=== PATIENT | male | born 1940 | race Caucasian/White ===

== ENCOUNTER 2018-03-25 06:44 | Observation (INO) | payer MEDICARE, OTHER ==
[2018-03-15 15:15] VITALS: BMI 34.8
[~2018-03-25] VITALS: Ht 177.8 cm; Wt 110.0 kg
[2018-03-25] VITALS (27 sets, daily range): BP systolic 87–137; BP diastolic 44–76; PULSE 68–88; RESP 12–41; Ht 177.8 cm; Wt 110.0 kg
[~2018-03-25 06:44] MED LIST: ACETAMINOPHEN 500 MG TAB PO ONE; BACITRACIN 50000 UNITS INJ IRR ONE; CEFAZOLIN 2 GM/50 ML (PMX) 50 ML IVPB ONE; DEXAMETHASONE 4 MG/ML 1 ML INJ IV ONE; LACTATED RINGER'S 1,000 ML IV* SCH; TRANEXAMIC ACID 1,000 MG in NS 100 ML INTRA-OP X1 IVPB ONE; TRANEXAMIC ACID 1,000 MG in NS 100 ML PRE-OP X1 IVPB ONE
[2018-03-25] MEDS ORDERED: EPHEDrine SULFATE 50 MG/5 ML SYG ONE ×2 (07:00)
[2018-03-25] MEDS ORDERED: CEFAZOLIN 1 GM INJ ONE ×2 (07:00)
[2018-03-25] MEDS ORDERED: POLYMYXIN B 500000 UNIT INJ ONE (07:12)
[2018-03-25] MEDS ORDERED: GLIM1TAB2 PO (07:22)
[2018-03-25] MEDS ORDERED: BENA40TA56 PO (07:22)
[2018-03-25] MEDS ORDERED: ASPI81TA52 PO (07:23)
[2018-03-25] MEDS ORDERED: LINA5TAB PO (07:23)
[2018-03-25] MEDS ORDERED: FOLI-49 PO (07:24)
[2018-03-25] MEDS ORDERED: DUTA0.5C PO (07:24)
[2018-03-25] MEDS ORDERED: SIMV20TA PO (07:24)
[2018-03-25] MEDS ORDERED: LEVO25TA50 PO (07:25)
[2018-03-25] MEDS ORDERED: TAMS0.4C2 PO (07:25)
[2018-03-25] MEDS ORDERED: CELE100C PO (07:26)
[2018-03-25] MEDS ORDERED: GABA100C14 PO (07:26)
[2018-03-25] MEDS ORDERED: ESOM40CA PO (07:26)
[2018-03-25] MEDS ORDERED: ACETAMINOPHEN 1000MG/100ML IV 100 ML IVPB SCH (08:00)
--- NOTE | 2018-03-25 08:04 | HPN ---
Date/Time of Note Date/Time of Note DATE: 03/25/18 TIME: 08:04 Interval H&P Admission Note Pt. seen H&P reviewed: No system changes CHRISTIAN STONE Mar 25, 2018 08:04
[2018-03-25] MEDS ORDERED: FENTAnyl 50 MCG/ML VIAL ONE (08:16)
[2018-03-25] MEDS ORDERED: ROPIVACAINE 0.5 % 30 ML VIAL ONE (08:16)
[2018-03-25] MEDS ORDERED: MIDAZOLAM 1 MG/ML 2 ML INJ ONE (08:16)
[2018-03-25] MEDS ORDERED: PROPOFOL 0 ML ONE (08:16)
[2018-03-25] MEDS ORDERED: METOCLOPRAMIDE 10 MG INJ ONE (08:16)
[2018-03-25] MEDS ORDERED: morphine SULFATE/PF (10 MG/10 ML) INJ ONE (08:16)
[2018-03-25] MEDS ORDERED: ONDANSETRON 4 MG INJ ONE (08:16)
--- NOTE | 2018-03-25 08:59 | PREAC ---
Date/Time of Note Date/Time of Note DATE: 03/25/18 TIME: 08:57 Anesthesia Eval and Record Evaluation Time Pre-Procedure Interview DATE: 03/25/18 TIME: 08:57 Age 77 Sex male NPO: 8 hrs Preoperative diagnosis ight knee RA primary Planned procedure R knee replacement Past Medical History Past Medical History: Includes Cardio: HTN, Dyslipidemia Endo: Diabetes, Hypothyroid Renal: CKD GI: Obesity Surgery & Anesthesia Issues No known issue Meds Anticoagulation: No Beta Deejay within 24 hr: No Reason Beta Deejay not given: Pt. not on B-Deejay Reported Medications Gabapentin* (Gabapentin*) 100 Mg Capsule, 100 MG PO TID, #90 CAP 03/25/18 Celecoxib* (Celebrex*) 100 Mg Capsule, 100 MG PO BID, CAP 03/25/18 Esomeprazole Mag Trihydrate (Nexium) 40 Mg Capsule.dr, 40 MG PO DAILY, #30 CAP 03/25/18 Levothyroxine Sodium* (Levoxyl*) 25 Mcg Tablet, 25 MCG PO MONWEDFRI, #30 TAB 03/25/18 Tamsulosin Hcl* (Tamsulosin Hcl*) 0.4 Mg Cap.er.24h, 0.4 MG PO HS, CAP 03/25/18 Simvastatin* (Zocor*) 20 Mg Tablet, 20 MG PO QHS, #30 TAB 03/25/18 Dutasteride* (Avodart*) 0.5 Mg Capsule, 0.5 MG PO DAILY, CAP 03/25/18 Folic Acid* (Folic Acid*) 1 Mg Tablet, 1 MG PO DAILY, TAB 03/25/18 Aspirin (Low Dose Aspirin) 81 Mg Tablet.dr, 81 MG PO DAILY, #30 TAB 03/25/18 Linagliptin (TRADJENTA) 5 Mg Tablet, 5 MG PO DAILY, TAB 03/25/18 Glimepiride* (Glimepiride*) 1 Mg Tablet, 1 MG PO WITH BREAKFAST, TAB 03/25/18 Benazepril Hcl* (Benazepril Hcl*) 40 Mg Tablet, 40 MG PO DAILY, #30 TAB 03/25/18 Current Medications Lactated Ringer's 1,000 ml @ 125 mls/hr Q8H IV* Last administered on 03/25/18at 07:57; Admin Dose 125 MLS/HR; Start 03/25/18 at 06:00; Stop 03/25/18 at 13:59 Meds reviewed: Yes Allergies Coded Allergies: No Known Allergy (Unverified , 03/25/18) Allergies Reviewed: Yes Labs/Studies Labs Reviewed: Reviewed by anesthesiologist Blood Bank Test 03/25/18 07:50 Antibody Screen NEGATIVE Blood Type B POSITIVE test: N/A Studies: ECG (sr), CXR (patch. cleared by PC) Pre-procedure Exam Last vitals Vital Signs Date Temp Pulse Resp B/P (MAP) Pulse Ox O2 O2 Flow FiO2 Time Delivery Rate 03/25/18 98.5 80 18 137/69 97 Room Air 08:11 (91) Airway: Adequate mouth opening Mallampati: Mallampati II Teeth: Normal Lung: Normal Heart: Normal ASA Physical Status ASA physical status: 2 Emergency: None Planned Anesthetic General/MAC: ETT, LMA Neuraxial: Spinal Nerve block: Femoral (right) Pre-operative Attestations Prior to commencing anesthesia and surgery, the patient was re-evaluated, there was verification of: *The patient's identity *The results of appropriate recent lab work and preoperative vital signs *The above evaluation not changing prior to induction *Anesthetic plan, risk benefits, alternative and complications discussed with patient/family; questions answered; patient/family understands, accepts and wishes to proceed. FRANCHESCA BARBER MD Mar 25, 2018 08:59
[2018-03-25] MEDS ORDERED: ONDANSETRON 4 MG INJ IV PRN ×2 (09:00→22:00)
[2018-03-25] MEDS ORDERED: HYDROmorphONE 1 MG/5 ML IV SYRINGE IV PRN ×3 (09:00)
[2018-03-25] MEDS ORDERED: DIPHENHYDRAMINE 50 MG INJ IV PRN (09:00)
[2018-03-25] MEDS ORDERED: LABETALOL HCL 20MG INJ IV PRN (09:00)
[2018-03-25] MEDS ORDERED: hydrALAzine 20 MG INJ IV PRN (09:00)
[2018-03-25] MEDS ORDERED: MEPERIDINE 25 MG INJ IV PRN (09:00)
[2018-03-25] MEDS ORDERED: BACITRACIN 50000 UNITS INJ IRR ONE (10:02)
--- NOTE | 2018-03-25 11:01 | SIPON ---
Date/Time of Note Date/Time of Note DATE: 03/25/18 TIME: 10:59 Operative Report Preoperative Diagnosis Right knee osteoarthritis Postoperative Diagnosis Same Operation/Procedure Performed Right total knee replacement Surgeon see signature line executive sales assistant WILLIAM Ott Anesthesia: spinal Estimated blood loss: 250 - 300 ml's Transfusion Required none Specimen Bone Grafts/Implants Burgin knee, size 7 femur, size 7 tibia, 7 mm polyethylene and 41 patella Complications none CHRISTIAN STONE Mar 25, 2018 11:00
--- NOTE | 2018-03-25 11:03 | OPR ---
Date/Time of Note Date/Time of Note DATE: 03/25/18 TIME: 11:01 Operative Report Procedure Date: Mar 25, 2018 Preoperative Diagnosis Right knee osteoarthritis Postoperative Diagnosis Same Operation/Procedure Performed Right total knee replacement Surgeon see signature line Correctional Officer WILLIAM Ott Anesthesia Type: spinal Estimated Blood Loss: 250 - 300 ml's Transfusion none Specimen Bone Grafts/Implants Attune knee, size 7 femur, size 7 tibia, size 7 polyethylene, 41 patella Tubes/Drains None Complications none Pt Condition Post Procedure: stable Disposition: PACU Indications Patient is a 77-year-old male with advanced arthritis of his right knee Procedure Description The patient was placed supine on the operating room table. Right knee was prepped and draped in usual manner. An anterior incision was made. A mid vastus approach was made in the patella displaced laterally without everting it. Using intramedullary alignment, the distal femoral cut was made in 5 degrees of valgus. The femur was measured to be a size 7. The 7 cutting block was placed in slight external rotation. Anterior posterior and chamfer cuts were made. A notch was cut in the distal femur to accommodate the posterior stabilized femoral component. The PCL was sacrificed, remnants of the menisci were removed. The tibia was cut using external alignment and the patella cut using a freehand technique. Trials were inserted including a 7 femur, 7 tibia, 7 mm of polyethylene and 41 patella. This resulted in a stable knee from 0-120 degrees with good balance and tracking. The trials were then removed. The knee was in jected with pain cocktail. Hemostasis was confirmed with aqua mantis. Final components were cemented in place including a 7 femur, 7 tibia, 41 patella. 7 mm of polyethylene were placed. The knee was stable throughout its range of motion. Patellar tracking was satisfactory. The knee was closed in layers using #1 strata fix for deep fascia, 2-0 Vicryl for subcutaneous tissue and 3-0 Monocryl for the skin. Patient was transferred to the recovery room in stable condition CHRISTIAN STONE Mar 25, 2018 11:03
[2018-03-25] MEDS ORDERED: ETOMIDATE 20 MG INJ ONE (11:06)
[2018-03-25] MEDS ORDERED: NACL 0.9% 3 ML SYG IV SCH (11:30)
[2018-03-25] MEDS ORDERED: KETOROLAC 15 MG INJ IV PRN (11:30)
[2018-03-25] MEDS ORDERED: NALOXONE (0.4 MG/ML) INJ IV PRN (11:30)
[2018-03-25] MEDS ORDERED: oxyCODONE 5 MG TAB PO PRN ×2 (11:30)
[2018-03-25] MEDS ORDERED: MAGNESIUM HYDROXIDE 30ML CUP PO PRN (11:30)
[2018-03-25] MEDS: CEFAZOLIN 2 GM/50 ML (PMX) 50 ML IVPB SCH ×2 (11:48→20:13)
[2018-03-25] MEDS: LACTATED RINGER'S 1,000 ML IV SCH ×2 (13:32→23:33)
--- NOTE | 2018-03-25 13:33 | PAC ---
Date/Time of Note Date/Time of Note DATE: 03/25/18 TIME: 13:33 Post-Anesthesia Notes Post-Anesthesia Note Last documented vital signs Vital Signs Date Temp Pulse Resp B/P (MAP) Pulse Ox O2 O2 Flow FiO2 Time Delivery Rate 03/25/18 Nasal 2.0 12:40 Cannula 03/25/18 98.3 78 16 110/61 99 12:39 (77) Activity: WNL Respiratory function: WNL Cardiovascular function: WNL Mental status: Baseline Pain reasonably controlled: Yes Hydration appropriate: Yes Nausea/Vomiting absent: No FRANCHESCA BARBER MD Mar 25, 2018 13:33
--- NOTE | 2018-03-25 16:26 | PAC ---
Date/Time of Note Date/Time of Note DATE: 03/25/18 TIME: 16:26 Post-Anesthesia Notes Post-Anesthesia Note Last documented vital signs Vital Signs Date Temp Pulse Resp B/P (MAP) Pulse Ox O2 O2 Flow FiO2 Time Delivery Rate 03/25/18 97.8 79 17 131/62 97 Nasal 14:18 (85) Cannula 03/25/18 2.0 12:40 03/25/18 16 12:39 Activity: WNL Respiratory function: WNL Cardiovascular function: WNL Mental status: Baseline Pain reasonably controlled: Yes Hydration appropriate: Yes Nausea/Vomiting absent: No FRANCHESCA BARBER MD Mar 25, 2018 16:26
[2018-03-25] MEDS ORDERED: GLUCOSE GEL 15 GRAM TUBE PO PRN ×2 (16:30)
[2018-03-25] MEDS ORDERED: DEXTROSE 50% 50 ML SYRINGE IV PRN ×2 (16:30)
[2018-03-25] MEDS ORDERED: GLUCOSE GEL 15 GRAM TUBE BUCCAL PRN (16:30)
[2018-03-25] MEDS ORDERED: GLUCAGON 1 MG INJ IM PRN (16:30)
--- NOTE | 2018-03-25 17:04 | CONS ---
DATE OF ADMISSION: 03/25/2018 DATE OF CONSULTATION: 03/25/2018 INDICATION FOR CONSULTATION: Medical management. HISTORY OF PRESENTING COMPLAINT: A 77-year-old pleasant male with a past medical history of diabetes , high blood pressure, hypothyroidism and dyslipidemia who was brought in for right total knee replac ement due to chronic severe right knee osteoarthritis. The patient underwent the procedure earlier t katelyn and we are being consulted for postoperative medical management of his comorbidities. At this t sakshi, the patient was seen in the medical surgical floor, he was in no distress. He was comfortable. He denied pain at the surgical site. He states that he was in his normal health prior to surgery. At this time, denies chest pain, denies shortness of breath. Denies abdominal pain. He has not rega ined full sensation in his lower extremities from the anesthesia, but otherwise is fairly comfortable . PAST MEDICAL HISTORY: 1. Diabetes. 2. High blood pressure. 3. Dyslipidemia. 4. BPH. 5. Chronic osteoarthritis. 6. Hypothyroidism. 7. Occasional GERD. PAST SURGICAL HISTORY: 1. Right shoulder arthroscopy. 2. Hernia repair with mesh. ALLERGIES: HE HAS NO KNOWN DRUG ALLERGIES. SOCIAL HISTORY: He is a remote smoker for more than 24 years ago. Denies alcohol or illicit drug us e. FAMILY HISTORY: Noncontributory. REVIEW OF SYSTEMS: A 12-point review of system was done. Pertinent findings as in HPI. PHYSICAL EXAMINATION VITAL SIGNS: Temperature 97.8, pulse 79, respirations 16, blood pressure 131/60, saturations 97% on room air. GENERAL: Obese male, alert and oriented, in no distress. HEENT: Head is normocephalic. Pupils equal and reactive. Mucous membranes are moist. Posterior ph arynx clear of erythema and exudate. NECK: Supple with adenopathy. CHEST: Clear to auscultation. CARDIOVASCULAR: S1, S2, no added sounds or murmurs. ABDOMEN: Obese, soft, nontender, nondistended. Normoactive bowel sounds. EXTREMITIES: Negative for edema in both lower extremities. Right lower extremity is encased in a ba ndage from just above the ankle to the mid thigh. The patient is able to wiggle his toes and able to move his legs, but as mentioned earlier, still has not regained full sensation. SKIN: Otherwise, without of rash or jaundice. LABORATORY VALUES: There are no new lab findings to report. A fingerstick blood sugar was 176. ASSESSMENT: This 77-year-old male brought in for an elective right total knee arthroplasty due to ch ronic osteoarthritis who following we are consulted for management of medical problems: 1. High blood pressure, patient is currently exhibiting good control. Resume home medications and n o change is necessary. 2. Diabetes mellitus type 2. At home, the patient is taking Tradjenta and glimepiride, which we put on hold, in the hospital. We will maintain him with a weight-based Lantus and premeal NovoLog and c heck a hemoglobin A1c. If his hemoglobin A1c reflects good home control. We will resume him back on his home regimen at discharge. If not, we will have to modify his regimen to optimize him. 3. Chronic hypothyroidism. Continue home Synthroid. Check a TSH tomorrow again to assess and determine discharge . 4. History of dyslipidemia. Continue home simvastatin. 5. History of gastroesophageal reflux disease. Continue home Nexium. 6. History of benign prostatic hypertrophy. Continue home Tamsulosin and Avodart. 7. Chronic osteoarthritis and neuropathy pain management and comfort medicines per orthopedic. Plan of care has been discussed with patient in detail. Questions have been answered. Thank you so much for the consult. We will follow the patient with you. DVT prophylaxis will be per orthopedic team. Dictated By: DUSTY ROSALES MD BA/NTS Conf#: [id number] DID#: [id number] CC: CHRISTIAN STONE MD;*End*
[2018-03-25] MEDS: INSULIN ASPART [NOVOLOG] 3 ML PEN SC SCH ×2 (17:41→21:36)
[2018-03-25] MEDS: ACCU-CHEK XX SCH ×2 (17:42→21:00)
[2018-03-25] MEDS ORDERED: INSULIN GLARGINE [LANTus] (100 UNITS/ML) SYG SC SCH (20:00)
[2018-03-25] MEDS ORDERED: ATORVASTATIN 10 MG TAB PO SCH (21:00)
[2018-03-25] MEDS ORDERED: TAMSULOSIN (SR) 0.4 MG CAP PO SCH (21:00)
[2018-03-26] VITALS: BP 133/80; PULSE 80; RESP 18
[2018-03-26] MEDS ORDERED: ACCU-CHEK XX SCH (02:00)
[2018-03-26] MEDS: LACTATED RINGER'S 1,000 ML IV SCH (02:08)
[2018-03-26] MEDS: CEFAZOLIN 2 GM/50 ML (PMX) 50 ML IVPB SCH (03:50)
[2018-03-26 05:30] VITALS: BP 116/62; PULSE 76; RESP 18
[2018-03-26] MEDS: ACCU-CHEK XX SCH ×2 (07:20→12:24)
[2018-03-26 07:41] VITALS: BP 112/56; PULSE 76; RESP 18
[2018-03-26] MEDS: INSULIN ASPART [NOVOLOG] 3 ML PEN SC SCH ×2 (07:50→12:40)
--- NOTE | 2018-03-26 08:30 | PN ---
Date/Time of Note Date/Time of Note DATE: 03/26/18 TIME: 08:24 Assessment/Plan Lines/Catheters IV Catheter Type (from Nrs): Peripheral IV Assessment/Plan Assessment/Plan Patient is doing well after right knee replacement. He will do physical therapy this morning and will be discharged home. He will follow-up in 2 weeks Subjective 24 Hr Interval Summary Postop day 1 after right knee replacement. Patient is doing well. Pain is controlled. The patient has not walked with physical therapy yet due to femoral nerve block that was done yesterday. He will walk this morning Exam/Review of Systems Vital Signs Vitals Vital Signs Date Temp Pulse Resp B/P (MAP) Pulse Ox O2 O2 Flow FiO2 Time Delivery Rate 03/26/18 98.5 76 18 112/56 99 Room Air 07:41 (74) 03/25/18 2.0 19:40 Intake and Output 03/25/18 03/25/18 03/26/18 1515:00 23:00 07:00 IntakeIntake Total 2320 ml 450 ml 890 ml OutputOutput Total 100 ml 700 ml 250 ml BalanceBalance 2220 ml -250 ml 640 ml Exam Free Text/Dictation Right knee dressing is clean. Mild swelling is noted. Range of motion is 10-70 degrees. No neurovascular deficit Results Result Diagram: 03/26/18 0437 03/26/18 0437 CHRISTIAN STONE Mar 26, 2018 08:30
--- NOTE | 2018-03-26 08:36 | DS ---
Date/Time of Note Date/Time of Note DATE: 03/26/18 TIME: 08:34 Discharge Summary Admission/Discharge Info Admit Date/Time Mar 25, 2018 at 11:07 Discharge Date/Time March 26, 2018 Discharge Diagnosis Right total knee replacement Patient Condition: Good Hospital Course Patient was admitted for right knee replacement. The patient did well p ostoperatively with pain control and ambulation. There is no evidence of infection or DVT. The patient is being discharged home with home health care and instructions to continue knee exercises as instructed. He will use a walker for support. He will follow-up in 2 weeks as per his appointment. Pain medications have been prescribed Home Meds Reported Medications Gabapentin* (Gabapentin*) 100 Mg Capsule, 100 MG PO TID, #90 CAP 03/25/18 Celecoxib* (Celebrex*) 100 Mg Capsule, 100 MG PO BID, CAP 03/25/18 Esomeprazole Mag Trihydrate (Nexium) 40 Mg Capsule.dr, 40 MG PO DAILY, #30 CAP 03/25/18 Levothyroxine Sodium* (Levoxyl*) 25 Mcg Tablet, 25 MCG PO MONWEDFRI, #30 TAB 03/25/18 Tamsulosin Hcl* (Tamsulosin Hcl*) 0.4 Mg Cap.er.24h, 0.4 MG PO HS, CAP 03/25/18 Simvastatin* (Zocor*) 20 Mg Tablet, 20 MG PO QHS, #30 TAB 03/25/18 Dutasteride* (Avodart*) 0.5 Mg Capsule, 0.5 MG PO DAILY, CAP 03/25/18 Folic Acid* (Folic Acid*) 1 Mg Tablet, 1 MG PO DAILY, TAB 03/25/18 Aspirin (Low Dose Aspirin) 81 Mg Tablet.dr, 81 MG PO DAILY, #30 TAB 03/25/18 Linagliptin (TRADJENTA) 5 Mg Tablet, 5 MG PO DAILY, TAB 03/25/18 Glimepiride* (Glimepiride*) 1 Mg Tablet, 1 MG PO WITH BREAKFAST, TAB 03/25/18 Benazepril Hcl* (Benazepril Hcl*) 40 Mg Tablet, 40 MG PO DAILY, #30 TAB 03/25/18 Follow-up Plan 2 weeks Primary Care Provider Not On Staff Doctor Time spent on discharge: < 30 minutes Pending Labs Laboratory Tests Test 03/25/18 11:36 2/14/19 17:36 03/25/18 21:30 03/26/18 02:04 Bedside 176 230 182 116 Glucose mg/dL (70-220) mg/dL (70-220) mg/dL (70-220) mg/dL (70-220) Test 03/26/18 04:37 03/26/18 07:40 White Blood 6.1 Count 10^3/ul (4.8-10 .8) Red Blood 3.42 Count 10^6/ul (4.70-6 .10) Hemoglobin 9.5 g/dl (14.0-18.0 ) Hematocrit 30.8 % (42.0-52.0) Mean 90.1 Corpuscular fl (82.0-101.0) Volume Mean 27.8 Corpuscular pg (29.0-33.0) Hemoglobin Mean 30.8 Corpuscular g/dl (32.0-37.0 Hemoglobin Conc ) ent Red Cell 14.3 Distribution % (11.5-14.5) Width Platelet Count 177 10^3/UL (140-41 5) Mean Platelet 9.9 Volume fl (7.4-10.4) Immature 0.700 Granulocytes % % (0.001-0.429) Neutrophils % 80.5 % (39.0-77.0) Lymphocytes % 11.2 % (15.0-51.0) Monocytes % 7.6 % (0.0-11.0) Eosinophils % 0.0 % (0.0-7.0) Basophils % 0.0 % (0.0-2.0) Nucleated Red 0.0 Blood Cells % /100WBC (0.0-0. 0) Immature 0.040 Granulocytes # 10^3/ul (0.0-0. 031) Neutrophils # 4.9 10^3/ul (1.6-7. 5) Lymphocytes # 0.7 10^3/ul (0.8-2. 9) Monocytes # 0.5 10^3/ul (0.3-0. 9) Eosinophils # 0.0 10^3/ul (0.0-0. 5) Basophils # 0.0 10^3/ul (0.0-0. 1) Nucleated Red 0.0 Blood Cells # 10^3/ul (0.0-0. 0) Sodium Level 138 mmol/L (135-144 ) Potassium 4.4 Level mmol/L (3.5-5.1 ) Chloride Level 107 mmol/L (97-110) Carbon Dioxide 24 Level mmol/L (21-31) Anion Gap 7 (5-13) Blood Urea 23 mg/dl (7-20) Nitrogen Creatinine 1.02 mg/dl (0.61-1.2 4) Est Glomerular mL/min (>60) Filtrat Rate mL/min Glucose Level 93 mg/dl (70-220) Hemoglobin A1c 6.0 % (0-5.9) Calcium Level 8.9 mg/dl (8.4-10.2 ) Magnesium 1.7 Level mg/dl (1.7-2.5) Triglycerides 66 Level mg/dl (0-149) Cholesterol 115 Level mg/dl (100-200) LDL 60 mg/dl Cholesterol, Calculated HDL 42 Cholesterol mg/dl (31-75) Cholesterol/HDL 2.7 RATIO Ratio Thyroid 0.966 Stimulating MIU/L (0.465-4. Hormone (TSH) 680) Lab Scanned REFERENCE Report LAB [id number] CHRISTIAN ESPITIA Mar 26, 2018 08:36
[2018-03-26] MEDS ORDERED: DOCUSATE SODIUM 100 MG CAP PO SCH (09:00)
[2018-03-26] MEDS ORDERED: ASPIRIN (EC) 81 MG TAB PO SCH ×2 (09:00)
[2018-03-26] MEDS ORDERED: LINAGLIPTIN 5 MG TABLET PO SCH (09:00)
[2018-03-26] MEDS ORDERED: LEVOTHYROXINE 25 MCG TAB PO SCH (09:00)
[2018-03-26] MEDS ORDERED: BENAZEPRIL 40 MG TAB PO SCH (09:00)
[2018-03-26] MEDS ORDERED: NON-FORMULARY/PATIENT OWN MED (Esomeprazole Mag Trihydrate (Nexium) 40 MG) PO SCH (09:00)
[2018-03-26] MEDS ORDERED: DUTASTERIDE 0.5 MG CAP PO SCH (09:00)
[2018-03-26] MEDS ORDERED: FOLIC ACID 1 MG TAB PO SCH (09:00)
[2018-03-26] MEDS ORDERED: ONDANSETRON 4 MG INJ IV PRN (11:30)
--- NOTE | 2018-03-26 12:48 | CONS ---
Assessment/Plan Assessment/Plan Hospital Course (Demo Recall) SUBJECTIVE: Right knee pain well controlled. OBJECTIVE: Physical Exam General: Obese, 77 year-old male lying in bed in no apparent distress. HEENT: Normocephalic, atraumatic. Eyes: Anicteric sclerae, conjunctivae clear. ENT: Nasal septum midline, oral mucosa moist. Patient Genitourinary: Deferred. Extremities: No cyanosis, no clubbing, no edema. Right knee surgical dressing. Neurologic: Cranial nerves II through XII grossly intact. The patient is awake, alert, and oriented. Skin: Normal skin turgor. No skin rashes. Labs & Vitals per chart ASSESSMENT & PLAN 77-year-old male with comorbidities including diabetes mellitus, hypertension, hypothyroidism, prostatic hypertrophy, GERD, and obesity who was brought in for a right total knee replacement for right knee osteoarthritis. The patient underwent the surgery and the patient was admitted to inpatient setting for further monitoring. Hospitalist consult was obtained for medical management. 1. Right knee osteoarthritis. -Status post right total knee replacement on 03/25/2018. -Continue pain control. -Physical therapy as per orthopedic surgery. -Weightbearing as per orthopedic surgery. -Anticoagulation as per orthopedic surgery 2. Diabetes mellitus type 2. Hemoglobin A1c 6.0. -Continue Tradjenta and sliding scale insulin along with basal insulin. 3. Dyslipidemia. -Continue statins. -Fasting lipid panel satisfactory. 4. Hypothyroidism -Continue Synthroid. 5. BPH -Continue tamsulosin and Avodart. 6. Hypertension. -Continue antihypertensives. 7. Fluids, electrolytes, and nutrition. -Carbohydrate controlled diet. 8. DVT prophylaxis -As per orthopedic surgery. Recommendations. The patient is medically optimized. The patient is medically stable for discharge once cleared by orthopedic surgery. The patient was seen in collaboration with Dr. Levy. Consultation Date/Type/Reason Admit Date/Time Mar 25, 2018 at 11:07 Initial Consult Date 03/25/2018 Type of Consult Medical Reason for Consultation Medical management Requesting Provider: CHRISTIAN STONE Date/Time of Note DATE: 03/26/18 TIME: 12:47 Exam/Review of Systems Exam Vitals Vital Signs Date Temp Pulse Resp B/P (MAP) Pulse Ox O2 O2 Flow FiO2 Time Delivery Rate 03/26/18 98.5 76 18 112/56 99 Room Air 07:41 (74) 03/25/18 2.0 19:40 Intake and Output 03/25/18 03/25/18 03/26/18 1515:00 23:00 07:00 IntakeIntake Total 2320 ml 450 ml 890 ml OutputOutput Total 100 ml 700 ml 250 ml BalanceBalance 2220 ml -250 ml 640 ml Results Result Diagram: 03/26/18 0437 03/26/18 0437 Results 24hrs Laboratory Tests Test 03/25/18 17:36 03/25/18 21:30 03/26/18 02:04 03/26/18 04:37 Bedside Glucose 230 H 182 116 White Blood Count 6.1 Red Blood Count 3.42 L Hemoglobin 9.5 L Hematocrit 30.8 L Mean Corpuscular 90.1 Volume Mean Corpuscular 27.8 L Hemoglobin Mean Corpuscular 30.8 L Hemoglobin Concent Red Cell 14.3 Distribution Width Platelet Count 177 Mean Platelet 9.9 Volume Immature 0.700 H Granulocytes % Neutrophils % 80.5 H Lymphocytes % 11.2 L Monocytes % 7.6 Eosinophils % 0.0 Basophils % 0.0 Nucleated Red 0.0 Blood Cells % Immature 0.040 H Granulocytes # Neutrophils # 4.9 Lymphocytes # 0.7 L Monocytes # 0.5 Eosinophils # 0.0 Basophils # 0.0 Nucleated Red 0.0 Blood Cells # Sodium Level 138 Potassium Level 4.4 Chloride Level 107 Carbon Dioxide 24 Level Anion Gap 7 Blood Urea 23 H Nitrogen Creatinine 1.02 Est Glomerular Filtrat Rate mL/min Glucose Level 93 Hemoglobin A1c 6.0 H Calcium Level 8.9 Magnesium Level 1.7 Triglycerides 66 Level Cholesterol Level 115 LDL Cholesterol, 60 Calculated HDL Cholesterol 42 Cholesterol/HDL 2.7 Ratio Thyroid 0.966 Stimulating Hormone (TSH) Test 03/26/18 07:40 03/26/18 08:35 03/26/18 12:40 Lab Scanned Report REFERENCE LAB Bedside Glucose 100 90 Medications Medication Current Medications Lactated Ringer's 1,000 ml @ 80 mls/hr [id number] IV Last administered on 03/26/18at 02:08; Admin Dose 80 MLS/HR; Start 03/25/18 at 11:03 IV Flush (NS 3 ml) 3 ml PER PROTOCOL IV ; Start 03/25/18 at 11:30 Oxycodone HCl (Roxicodone) 10 mg Q4H PRN PO .PAIN; Start 03/25/18 at 11:30 Oxycodone HCl (Roxicodone) 5 mg Q4H PRN PO .PAIN; Start 03/25/18 at 11:30 Ketorolac Tromethamine (Toradol) 15 mg Q6H PRN IV .PAIN; Start 03/25/18 at 11:30 Pantoprazole (Protonix Tab) 40 mg DAILY@06 PO ; Start 03/27/18 at 06:00 Docusate Sodium (Colace) 200 mg BID PO Last administered on 03/26/18at 08:38; Admin Dose 200 MG; Start 03/26/18 at 09:00; Stop 03/29/18 at 08:59 Magnesium Hydroxide (Milk Of Mag) 30 ml HS PRN PO .CONSTIPATION; Start 03/25/18 at 11:30 Naloxone HCl (Narcan) 0.2 mg Q2M PRN IV .RESP RATE; Start 03/25/18 at 11:30 Aspirin (Halfprin) 81 mg BID PO Last administered on 03/26/18at 08:38; Admin Dose 81 MG; Start 03/26/18 at 09:00 Diagnostic Test (Pha) (Accu-Chek) 1 ea 02 XX ; Start 03/26/18 at 02:00 Insulin Aspart (Novolog Insulin Pen) NOVOLOG *MILD* ALGORITHM WITH MEALS BEDTIME SC Last administered on 03/25/18at 21:36; Admin Dose 1 UNIT; Start 03/25/18 at 17:55 Miscellaneous Information 1 ea NOTE XX ; Start 03/25/18 at 16:30 Glucose (Glutose) 15 gm Q15M PRN PO DECREASED GLUCOSE; Start 03/25/18 at 16:30 Glucose (Glutose) 22.5 gm Q15M PRN PO DECREASED GLUCOSE; Start 03/25/18 at 16:30 Dextrose (D50w Syringe) 25 ml Q15M PRN IV DECREASED GLUCOSE; Start 03/25/18 at 16:30 Dextrose (D50w Syringe) 50 ml Q15M PRN IV DECREASED GLUCOSE; Start 03/25/18 at 16:30 Glucagon (Glucagen) 1 mg Q15M PRN IM DECREASED GLUCOSE; Start 03/25/18 at 16:30 Glucose (Glutose) 15 gm Q15M PRN BUCCAL DECREASED GLUCOSE; Start 03/25/18 at 16:30 Benazepril HCl (Lotensin) 40 mg DAILY PO Last administered on 03/26/18 08:38; Admin Dose 40 MG; Start 03/26/18 at 09:00 Dutasteride (Avodart) 0.5 mg DAILY PO Last administered on 03/26/18 08:39; Admin Dose 0.5 MG; Start 03/26/18 at 09:00 Folic Acid (Folic Acid) 1 mg DAILY PO Last administered on 03/26/18 08:38; Admin Dose 1 MG; Start 03/26/18 at 09:00 Levothyroxine Sodium (Synthroid) 25 mcg MONWEDFRI PO Last administered on 03/26/18 08:38; Admin Dose 25 MCG; Start 03/26/18 at 09:00 Linagliptin (Tradjenta) 5 mg DAILY PO Last administered on 03/26/18 08:38; Admin Dose 5 MG; Start 03/26/18 at 09:00 Tamsulosin HCl (Flomax) 0.4 mg HS PO Last administered on 03/25/18 21:31; Admin Dose 0.4 MG; Start 03/25/18 at 21:00 Atorvastatin Calcium (Lipitor) 10 mg QHS PO Last administered on 03/25/18 21:38; Admin Dose 10 MG; Start 03/25/18 at 21:00 Diagnostic Test (Pha) (Accu-Chek) 1 ea AC MEALS AND BEDTIME XX Last administered on 03/25/18 17:42; Admin Dose 1 EA; Start 03/25/18 at 17:25 Insulin Glargine (Lantus) 17 units DAILY@2000 SC Last administered on 03/25/18 21:36; Admin Dose 17 UNITS; Start 03/25/18 at 20:00 Ondansetron HCl (Zofran Inj) 4 mg Q4H PRN IV NAUSEA/VOMITING Last administered on 03/25/18 22:06; Admin Dose 4 MG; Start 03/25/18 at 22:00 YANCY GRAF NP Mar 26, 2018 12:48
--- NOTE | 2018-03-26 13:59 | CONDCODE ---
Medicare Criteria-> INP to OBS Patient still in hospital: Yes SI/IS Criteria met: Yes Attending MD agrees w/change: Yes Order entered in Pt. record: Yes Pt. does not meet Inp Criteria: Yes Medicare Inp->Obs Criteria met: Yes UR Phys Advisor eSign required: Yes I personally scribed for ISIDRO GRAY MD ([email or web address]) on 03/26/18 at 13:59. Electronically submitted by Nguyen Anderson ([email or web address] ISIDRO GRAY MD Mar 26, 2018 13:59
--- NOTE | 2018-03-26 14:00 | CONDCODE ---
Medicare Criteria-> INP to OBS Patient still in hospital: Yes SI/IS Criteria met: Yes Attending MD agrees w/change: Yes Order entered in Pt. record: Yes Pt. does not meet Inp Criteria: Yes Medicare Inp->Obs Criteria met: Yes UR Phys Advisor eSign required: Yes I personally scribed for CHRISTIAN STONE ([email or web address]) on 03/26/18 at 14:00. Electronically submitted by Nguyen Anderson ([email or web address]). CHRISTIAN STONE Mar 26, 2018 14:00
[2018-03-27] MEDS ORDERED: PANTOPRAZOLE (EC) 40 MG TAB PO SCH (06:00)
== END 2018-03-26 16:00 | disposition home health service (06) ==
LOC: SDS 06:44 → INTOOBSV 11:07 → REC 11:07 → MS1 13:05
PROVIDERS: ADMIT Orthopaedic Surgery; ATTEND Orthopaedic Surgery
DX: M17.11 Unilateral primary osteoarthritis, right knee (principal); E11.9 Type 2 diabetes mellitus without complications; E78.5 Hyperlipidemia, unspecified; E03.9 Hypothyroidism, unspecified; E66.9 Obesity, unspecified; Z68.34 Body mass index [BMI] 34.0-34.9, adult
CPT/HCPCS: 27447; 73560; 80048; 80061; 82962; 83036; 83735; 84443; 85025; 86850; 86900; 86901; 87081; 88304; 88311; 97110; 97116; 97161; 97530; C1713; C1776; G0378; J0131; J0171; J0690; J0735; J1100; J1815; J1885; J2250; J2274; J2405; J2765; J2795; J3010; J7120; 99217